=== PATIENT | male | born 1965 ===

== ENCOUNTER 2020-12-25 15:56 | Emergency (ER) | payer OTHER ==
[~2020-12-25] VITALS: Ht 162.6 cm; Wt 49.9 kg
[2020-12-25] MEDS ORDERED: ASPIRIN 81 MG CHEW TAB PO ONE (16:45)
== END 2020-12-25 18:41 | disposition home or self-care (01) ==
LOC: FSED 16:07
DX: R07.9 Chest pain, unspecified (principal); R00.2 Palpitations; R31.29 Other microscopic hematuria; I10 Essential (primary) hypertension; R94.31 Abnormal electrocardiogram [ECG] [EKG]
CPT/HCPCS: 71046; 93005; 99284